=== PATIENT | female | born 1945 | race Caucasian/White ===

== ENCOUNTER 2017-08-25 06:30 | Day surgery (SDC) | payer MEDICARE, OTHER ==
[2017-08-25] MEDS ORDERED: ACETAZOLAMIDE 250 MG PO ONE (06:32)
[2017-08-25] MEDS: PROPARACAINE HCL 0.5% OPHTHALMIC SOL ONE ×3 (06:47→08:09)
[2017-08-25] MEDS: PHENYLEPHRINE HCL 10% OPHTHAL SOL ONE ×2 (06:47→07:00)
[2017-08-25] MEDS: KETOROLAC 0.5% OPTH 60 DROP SOL ONE ×2 (06:48→07:01)
[2017-08-25] MEDS: CYCLOPENTOLATE 1% SOL ONE ×2 (06:48→07:00)
[2017-08-25] MEDS ORDERED: MIDAZOLAM 2 MG/2 ML SOL ONE (07:25)
[2017-08-25] MEDS ORDERED: POVIDONE IODINE 5% SOL ONE (08:05)
[2017-08-25] MEDS ORDERED: BSS 500 ML 500 ML IR ONE (08:05)
[2017-08-25] MEDS ORDERED: LIDOCAINE HCL 1% MPF SOL ONE (08:05)
[2017-08-25 08:43] VITALS: BP 124/75; PULSE 57; RESP 20; TEMP 96.5; O2SAT 96
== END 2017-08-25 08:55 | disposition home or self-care (01) | DRG 125 ==
LOC: SURG 06:30
PROVIDERS: ATTEND Ophthalmology
DX: H25.9 Unspecified age-related cataract (principal)
CPT/HCPCS: J2250; J2001